=== PATIENT | male | born 1945 | race Hispanic/Latino ===

== ENCOUNTER 2016-05-17 07:27 | Day surgery (SDC) | payer MEDICARE, BC ==
[2016-04-26 13:48] VITALS: BMI 33.9
[2016-05-17] MEDS ORDERED: Midazolam 2 MG/2 ML VIAL ONE (09:27)
[2016-05-17] MEDS ORDERED: Propofol 10 mg/ml Inj (20 ML) ONE (09:27)
[2016-05-19 15:27] VITALS: BP 152/90; PULSE 68; RESP 18; TEMP 97.4; O2SAT 98
== END 2016-05-17 11:28 | disposition home or self-care (01) ==
LOC: ENDO 07:27
PROVIDERS: ATTEND Internal Medicine
DX: D12.5 Benign neoplasm of sigmoid colon (principal); D12.0 Benign neoplasm of cecum; K64.8 Other hemorrhoids; Z12.11 Encounter for screening for malignant neoplasm of colon; E66.9 Obesity, unspecified; I42.9 Cardiomyopathy, unspecified; I25.10 Atherosclerotic heart disease of native coronary artery without angina pectoris; I10 Essential (primary) hypertension; E78.5 Hyperlipidemia, unspecified; E11.9 Type 2 diabetes mellitus without complications; I77.9 Disorder of arteries and arterioles, unspecified; Z95.1 Presence of aortocoronary bypass graft; Z68.35 Body mass index [BMI] 35.0-35.9, adult; Z86.010 Personal history of colon polyps; K59.09 Other constipation
CPT/HCPCS: 45380; 45385; 82948; 88305; J2250; J2704; J7040

== ENCOUNTER 2018-05-02 07:04 | Outpatient (CLI) | payer MEDICARE | END 2018-05-02 07:05 | disposition home or self-care (01) | LOC: CARDIO 07:04 | DX: I25.10 Atherosclerotic heart disease of native coronary artery without angina pectoris (principal) ==

== ENCOUNTER 2018-05-15 06:09 | Day surgery (SDC) | payer MEDICARE ==
[2018-05-15 06:09] VITALS: BMI 33.5
--- NOTE | 2018-05-15 06:44 | ED PDOC ---
Arrival/HPI - General Chief Complaint: Chest Pain Time Seen by Provider: 05/15/18 06:32 Historian: Patient - History of Present Illness Narrative History of Present Illness (Text): 05/15/18 06:30 Patient to ED Past medical hx. of CAD,cardiac stents,atrial fibrillation on Eliquis,CABG,DM,HTN with complaint of intermittent chest discomfort since this am.No pain now.No hx. of any SOB.Patient with recent stress test which was abno rmal.Denies any back pain or leg pain.States he was advised by his roller setter to go to the emergency room. Past Medical History - Provider Review Nursing Documentation Reviewed: Yes - Travel History Have you recently traveled outside [place] w/in the past 3 mons?: No - Cardiac Hx Cardiac Disorders: Yes Hx Atrial Fibrillation: Yes Hx Hypertension: Yes - Neurological Hx Paralysis: No - Endocrine/Metabolic Hx Endocrine Disorders: Yes Hx Diabetes Mellitus Type 2: Yes - Hematological/Oncological Hx Blood Transfusions: No Hx Blood Transfusion Reaction: No - Musculoskeletal/Rheumatological Hx Musculoskeletal Disorders: No - Psychiatric Hx Emotional Abuse: No Hx Physical Abuse: No Hx Substance Use: No - Surgical History Hx Cardiac Catheterization: Yes Hx Coronary Artery Bypass Graft: Yes Other/Comment: cardiac stent x1 - Anesthesia Hx Anesthesia Reactions: No Hx Malignant Hyperthermia: No - Suicidal Assessment Feels Threatened In Home Enviroment: No Family/Social History - Physician Review Nursing Documentation Reviewed: Yes Family/Social History: CAD/[place] Smoking Status: Former Smoker Hx Alcohol Use: Yes (ON OCCASION) Frequency of alcohol use: Socially Hx Substance Use: No Allergies/Home Meds Allergies/Adverse Reactions: Allergies No Known Allergies Allergy (Verified 01/14/12 18:10) Home Medications: Home Meds Medication Instructions Recorded Confirmed Aspirin [Aspirin EC] 325 mg PO QPM 06/27/15 05/15/18 Metoprolol Tartrate [Lopressor] 50 mg PO BID 06/27/15 05/15/18 Multivit-Min/FA/Lycopen/Lutein 1 tab PO DAILY 06/27/15 05/15/18 [Centrum Silver Tablet] Olmesartan/Amlodipin/Hcthiazid 1 tab PO QAM 06/27/15 05/15/18 [Tribenzor 5 mg-12.5 mg-40 mg] [place]-3 Acid Ethyl Esters [Lovaza] 2 gm PO BID 06/27/15 05/15/18 Rosuvastatin Calcium [Crestor] 20 mg PO QPM 06/27/15 05/15/18 metFORMIN [glucOPHAGE] 1,000 mg PO BID 06/27/15 05/15/18 Empagliflozin [Jardiance] 25 mg PO DAILY 05/02/18 05/15/18 Apixaban [Eliquis] 5 mg PO BID 05/15/18 05/15/18 Review of Systems - Review of Systems Constitutional: Normal Eyes: Normal ENT: Normal Respiratory: Normal Cardiovascular: Chest Pain Gastrointestinal: Normal Genitourinary Male: Normal Musculoskeletal: Normal Skin: Normal Neurological: Normal Endocrine: Normal Hemo/Lymphatic: Normal Psychiatric: Normal Physical Exam Vital Signs Temp Pulse Resp BP Pulse Ox 05/15/18 06:20 98.7 F 86 24 165/69 H 96 Temperature: Afebrile Blood Pressure: Normal Pulse: Regular Respiratory Rate: Normal Appearance: Positive for: Well-Appearing, Non-Toxic, Comfortable Pain Distress: None Mental Status: Positive for: Alert and Oriented X 3 - Systems Exam Head: Present: Atraumatic, Normocephalic Pupils: Present: PERRL Extroacular Muscles: Present: EOMI Conjunctiva: Present: Normal Mouth: Present: Moist Mucous Membranes Neck: Present: Normal Range of Motion Respiratory/Chest: Present: Clear to Auscultation, Good Air Exchange. No: Respiratory Distress, Accessory Muscle Use Cardiovascular: Present: Regular Rate and Rhythm, Normal S1, S2. No: Murmurs Abdomen: No: Tenderness, Distention, Peritoneal Signs Back: Present: Normal Inspection Upper Extremity: Present: Normal Inspection. No: Cyanosis, Edema Lower Extremity: Present: Normal Inspection. No: Edema Neurological: Present: GCS=15, CN II-XII Intact, Speech Normal, Motor Func Grossly Intact, Normal Sensory Function Skin: Present: Warm, Dry, Normal Color. No: Rashes Psychiatric: Present: Alert, Oriented x 3, Normal Insight, Normal Concentration Medical Decision Making ED Course and Treatment: 05/15/18 06:45 Differentia DX. -ACS/PNA/PE Plan- Labs/EKG/CXR Reassess Final Disposition 05/15/18 06:56 Patient now requested for admission to [facility] to undergo cardiac catheterization - RAD Interpretation Radiology Orders: 05/15/18 06:41 CHEST PORTABLE [RAD] Stat Disposition/Present on Arrival - Present on Arrival Any Indicators Present on Arrival: No History of DVT/PE: No History of Uncontrolled Diabetes: No Urinary Catheter: No History of Decub. Ulcer: No History Surgical Site Infection Following: None - Disposition Have Diagnosis and Disposition been Completed?: Yes Diagnosis: Chest pain Disposition Time: 07:00 Patient Plan: Admission Patient Problems: Current Active Problems Problem Status Onset Chest pain Acute Condition: STABLE Discharge Instructions (ExitCare): Chest Pain (ED) Referrals: Bill Moyer MD [Primary Care Provider] - Follow up with primary Forms: [employer] (Nepali)
[2018-05-15 06:58] LABS: MEAN CELL VOLUME 92.2 fl (80.0-105.0); MEAN CORPUSCULAR HEMOGLOBIN 31.6 pg (25.0-35.0); MEAN CORPUSCULAR HGB CONC 34.3 g/dl (31.0-37.0); MEAN PLATELET VOLUME 9.9 fl (7.0-11.0); RBC 4.74 10^6/uL (3.5-6.1); RED CELL DISTRIBUTION WIDTH 12.7 % (11.5-14.5); WHITE BLOOD COUNT 9.5 10^3/uL (4.5-11.0)
[2018-05-15 07:00] LABS: ALB/GLOB RATIO 1.1 (1.1-1.8); ALBUMIN 4.5 g/dL (3.0-4.8); ALT/SGPT 21 U/L (7-56); AST/SGOT 28 U/L (17-59); BLOOD UREA NITROGEN 30 mg/dL (7-21); CALCIUM 9.7 mg/dL (8.4-10.5); GFR NON-AFRICAN AMERICAN 59
[2018-05-15 07:02] LABS: INR 1.11; PARTIAL THROMBOPLASTIN TIME 35.4 Seconds (26.9-38.3); PROTHROMBIN TIME 12.5 SECONDS (9.4-12.5)
[2018-05-15 07:12] LABS: TROPONIN I 0.04 ng/mL
[2018-05-15] MEDS ORDERED: Lidocaine PF 2% (5 ml) Inj (For Cardiac Arrhy) ONE (09:20)
[2018-05-15] MEDS ORDERED: Iodixanol 320 MG/ML 200 ML BOTTLE IV ONE (09:20)
[2018-05-15] MEDS ORDERED: Iohexol 350mgl/ml 50 ML ONE (09:20)
[2018-05-15] MEDS ORDERED: Iodixanol 320 MG/ML 100 ML BOTTLE IV ONE (09:20)
--- NOTE | 2018-05-15 09:25 | RAD ---
Date of service: 05/15/2018 HISTORY: chest pain COMPARISON: No prior. TECHNIQUE: 1 view obtained. FINDINGS: LUNGS: No active pulmonary disease. PLEURA: No significant pleural effusion identified, no pneumothorax apparent. CARDIOVASCULAR: No aortic atherosclerotic calcification present. Mild to moderate cardiomegaly no pulmonary vascular congestion. OSSEOUS STRUCTURES: Sternal wires VISUALIZED UPPER ABDOMEN: Normal. OTHER FINDINGS: None. IMPRESSION: No active disease.
[2018-05-15] MEDS ORDERED: Midazolam 2 MG/2 ML VIAL ONE ×2 (10:15→10:20)
--- NOTE | 2018-05-15 11:07 | CARD ---
APPROVED REPORT Date of service: 05/15/2018 EKG Measurement Heart [id number] <Conclusion> Atrial fibrillation with premature ventricular or aberrantly conducted complexes Nonspecific intraventricular block T wave abnormality, consider lateral ischemia or digitalis effect Abnormal ECG
[2018-05-15] MEDS ORDERED: Sodium Chloride 0.9% 1,000 ML IV SCH (11:15)
--- NOTE | 2018-05-15 13:03 | CARD ---
APPROVED REPORT Date of service: 05/15/2018 EKG Measurement Heart [id number] <Conclusion> Atrial fibrillation Incomplete left Bundle br. block T wave abnormality, possibly repolarization abnormality secondary to Bundle Br. Block but can not R/o Ischemia Corelate clinically. Abnormal ECG
--- NOTE | 2018-05-15 16:23 | CARDCATH ---
PROCEDURE DATE: 05/15/2018 PROCEDURES: 1. Left heart catheterization with coronary arteriography, left ventriculogram, supra-aortic valvular injection, left internal mammary artery angiogram and saphenous vein graft angiogram followed by percutaneous transluminal coronary angioplasty and stent of a saphenous vein graft to the diagonal vessel. HISTORY: The patient is a 72-year-old male with a history of coronary artery bypass surgery, diabetes mellitus, ischemic dilated cardiomyopathy as well as new-onset atrial fibrillation, who presented with an abnormal stress test with new area of ischemia in the anterior wall. Because of this, cardiac catheterization was recommended. The right femoral artery was cannulated with a 6-Mohawk sheath. There were no complications. I performed moderate sedation which included the presence of an independent trained observer that assisted in monitoring the patient's level of consciousness and physiologic status. After administration of Versed and fentanyl, my intra service time was 45 minutes. The findings on catheterization revealed a left ventricle that was globally hypokinetic. The estimated ejection fraction was 35-40%. Supra-aortic valvular injection revealed no aortic insufficiency. His coronary anatomy revealed an occluded RCA which was chronic. The left main artery was unremarkable. The LAD was subtotally occluded in its midportion. The circumflex artery is occluded in its proximal portion. The saphenous vein graft to the obtuse marginal branch was occluded which is chronic. The saphenous vein graft to the diagonal vessel was patent, however, there was a 90% stenoses in the proximal portion. The MARIN to the LAD was found to be patent and provided good antegrade flow to the mid and distal LAD. The patient was started on intravenous Angiomax under fluoroscopic guide, the right guiding catheter was placed in the ostium of the saphenous vein graft. A guide liner was used for better support; an ATW wire was used to cross the lesion. A 4.0 drug-eluting stent was placed and deployed in the proximal portion of the saphenous vein graft to the diagonal vessel. Postdilatation was performed with a 5.0 noncompliant balloon. Repeat coronary arteriography revealed an excellent result with no residual stenosis and JAE III flow. The patient tolerated the procedure well. Angio-Seal was used to close the femoral artery site. In summary, the procedure was successful PTCA and stent of a 90% proximal stenoses of the saphenous vein graft to the diagonal vessel. A drug-eluting stent was utilized. Postdilatation was performed with a 5.0 balloon. Cardiac catheterization reveals severe triple-vessel CAD. An occluded SVG to the circumflex artery. Patent MARIN to the LAD. New 90% stenoses in the saphenous vein graft to the diagonal vessel. Given these findings, the patient will need to remain on aspirin and Plavix with Plavix for at least a year. We will then add Eliquis to the patient's regimen given his new onset atrial fibrillation and DC the aspirin and continue the Plavix. Javan Hutchinson MD
[2018-05-15] MEDS ORDERED: Dextrose 50% SYRINGE Inj (50 ml) IV PRN (16:40)
[2018-05-15] MEDS: Insulin Reg-MEDIUM-Coverage SC SCH ×2 (17:14→22:43)
[2018-05-15 17:30] VITALS: RESP 20
--- NOTE | 2018-05-16 01:29 | HP ---
DATE OF EXAM: 05/15/2018 I was called by Dr. Javan Hutchinson, to admitted him to the hospital, he is status post coronary artery disease, catheterization and stent placement. HISTORY OF PRESENT ILLNESS: He is a 72-year-old man with past medical history of CAD, cardiac stent, AFib on Eliquis, history of CABG, diabetes, hypertension, intermittent chest pain, no shortness of breath. He had a recent stress test, which was abnormal. He was advised by Dr. Hutchinson to come to the emergency room. PAST MEDICAL HISTORY: AFib, hypertension, diabetes. He has coronary artery bypass graft with cardiac stent x1. FAMILY HISTORY: CAD and [place]. SOCIAL HISTORY: He is a former smoker. He still drinks alcohol on occasion. No substance abuse. ALLERGIES: NO KNOWN DRUG ALLERGIES. MEDICATIONS: He takes aspirin, Lopressor, Tribenzor, [place]-3 fatty acid, Crestor, Glucophage, Jardiance and Eliquis. REVIEW OF SYSTEMS: No acute vision or hearing changes. No sore throat. No neck pain. No shortness of breath or cough. No chest pain or palpitations. No abdominal pain, nausea, vomiting, constipation, or diarrhea. No problems urinating. No leg pains, back pains. No skin issues that he knows of. Alert and oriented. He just has chest pains. Positive stress test. PHYSICAL EXAMINATION VITAL SIGNS: A 98.7 temperature, 86 pulse, 24 respiratory rate, 165/69 blood pressure, 96% O2 sat. GENERAL: He is well appearing status post cardiac cath, resting comfortably in bed. He is to lay flat for 6 hours. He is comfortable at this time. He is alert and oriented x3. HEENT: Head; atraumatic and normocephalic. Extraocular muscles are intact. Pupils are equal and reactive to light and accommodation. Throat is moist. NECK: Supple. HEART: Regular rate. Normal S1 and S2. LUNGS: Decrease breath sounds, but clear to auscultation. No wheezes, rhonchi or rales. ABDOMEN: Soft, nontender. Positive bowel sounds. No guarding, no rebound. No CVA tenderness. EXTREMITIES: No edema. NEUROLOGIC: GCS is 15. Cranial nerves II to XII grossly intact. Speech is normal. SKIN: Warm and dry as far as I could tell. Lying flat on the bed. Alert and oriented x3. LYMPHATICS: Thyroid midline. No palpable appreciable lymphadenopathy. LABORATORY DATA: He had multiple tests done. He has a 141 sodium, potassium 4.2, BUN 30, creatinine 1.2, GFR is 59, last sugar is 173, calcium is 9.7, total bili is 0.6, AST is 28, ALT is 21, alk phos is 62, lactate dehydrogenase 404. Total creatine kinase is 94. Troponin I is 0.04. Total protein is 8.4. His INR is 1.11. He has a 9.5 white count, 15 hemoglobin, 42.7 hematocrit with a 102 platelets. A chest x-ray that was clear. EKG showed AFib. He had a positive stress test. ASSESSMENT: He has cardiac catheterization with stent placement for his coronary artery disease. PLAN: We will watch him overnight and will hopefully discharge him tomorrow morning. We will hold his medications for diabetes and that could bother the kidneys. He has dextrose just in case the blood sugar goes low. He is on Ecotrin, insulin coverage a.c. at bedtime, Lipitor, Lopressor and Plavix. Ibrahima Almendarez DO MTDD
[2018-05-16 06:02] VITALS: TEMP 97.8; O2SAT 95
[2018-05-16 06:42] LABS: BASO # 0.02 K/mm3 (0.0-2.0); BASO % 0.2 % (0.0-3.0); EOS # 0.1 (0.0-0.7); EOS % 1.1 % (1.5-5.0); HEMOGLOBIN 13.5 g/dL (14.0-18.0); LYMPH # 1.4 (1.2-3.4); LYMPH % 15.6 % (22.0-35.0); MEAN CELL VOLUME 93.4 fl (80.0-105.0); MEAN CORPUSCULAR HEMOGLOBIN 30.9 pg (25.0-35.0); MEAN CORPUSCULAR HGB CONC 33.1 g/dl (31.0-37.0); MONO # 0.9 (0.1-0.6); MONO % 10.1 % (1.0-6.0); RBC 4.37 10^6/uL (3.5-6.1); RED CELL DISTRIBUTION WIDTH 12.8 % (11.5-14.5); WHITE BLOOD COUNT 9.2 10^3/uL (4.5-11.0)
[2018-05-16 07:17] LABS: BLOOD UREA NITROGEN 19 mg/dL (7-21); CALCIUM 9.2 mg/dL (8.4-10.5); GFR NON-AFRICAN AMERICAN > 60
[2018-05-16] MEDS: Insulin Reg-MEDIUM-Coverage SC SCH (08:09)
[2018-05-16 10:10] VITALS: BP 153/78; PULSE 77
--- NOTE | 2018-05-16 11:59 | PN ---
DATE: 05/16/2018 SUBJECTIVE: The patient is chest pain-free. OBJECTIVE: VITAL SIGNS: Stable. NECK: Negative JVD. LUNGS: Without rales. HEART: S1 and S2. EXTREMITIES: Without edema. Right groin site is stable. LABORATORY DATA: Unremarkable. EKG is unremarkable. IMPRESSION: 1. Stable post percutaneous transluminal coronary angioplasty and stent of the saphenous vein graft to the diagonal vessel. 2. Multivessel coronary artery disease. 3. History of coronary artery bypass surgery. 4. Atrial fibrillation. 5. Hypertension. PLAN: Given these findings, the patient is stable for discharge. He will go home on a combination of Plavix as well as Eliquis without aspirin. The risk of three medications of aspirin, Plavix and Eliquis would be too high of a bleeding risk. I have discussed this with the patient in detail. Follow up and instructions have been given to the patient in detail. Javan Hutchinson MD
--- NOTE | 2018-05-16 12:26 | CARD ---
APPROVED REPORT Date of service: 05/16/2018 EKG Measurement Heart [id number] <Conclusion> Atrial fibrillation Nonspecific intraventricular block T wave abnormality, consider inferolateral ischemia or digitalis effect Abnormal ECG
--- NOTE | 2018-05-17 01:18 | DS ---
HISTORY OF PRESENT ILLNESS: He will be discharged today, status post cardiac cath with Dr. Hutchinson yesterday. He is feeling great this morning. No chest pain. No shortness of breath. No abdominal pain. He is eating well and going to the bathroom well. He is in good spirits. He is going to follow up with Dr. Moyer, his primary care doctor this week and also Dr. Hutchinson. MEDICATIONS: As per Dr. Hutchinson, he will adjust them this morning. PHYSICAL EXAMINATION: VITAL SIGNS: He has a 97.8 temperature, 69 pulse, 158/78 blood pressure, 20 respiratory rate, and 95% O2 sat nasal cannula. HEENT: Head; atraumatic and normocephalic. HEART: Regular rate. LUNGS: Decreased breath sounds, but clear. ABDOMEN: Soft and obese. EXTREMITIES: No edema. LABORATORY DATA: He has a 9.2 white count, 13.5 hemoglobin, 40.8 hematocrit, and 162 platelets. He has 139 sodium, potassium 4.3, BUN is 90, creatinine 1.1, GFR is greater than 60, sugar is 120, and calcium is 9.2. ASSESSMENT AND PLAN: Overall, he did very well with the cardiac catheterization and stent placement. He will follow up with Dr. Hutchinson. He will be on Plavix and probably Eliquis, aspirin, his regular medications and follow with Dr. Moyer. He had coronary artery disease and stent placement. Ibrahima Almendarez DO
== END 2018-05-16 13:19 | disposition home or self-care (01) ==
LOC: ED 06:09 → CATH 07:32 → 2RSO 11:26 → CATH 05-16 13:19
PROVIDERS: ATTEND Internal Medicine Cardiovascular Disease
DX: R07.89 Other chest pain (principal); I25.10 Atherosclerotic heart disease of native coronary artery without angina pectoris; I10 Essential (primary) hypertension; E11.9 Type 2 diabetes mellitus without complications; I25.5 Ischemic cardiomyopathy; I42.0 Dilated cardiomyopathy; I48.91 Unspecified atrial fibrillation; T82.858A Stenosis of other vascular prosthetic devices, implants and grafts, initial encounter; Z79.01 Long term (current) use of anticoagulants; Z79.4 Long term (current) use of insulin; Z79.82 Long term (current) use of aspirin; Z79.899 Other long term (current) drug therapy; Z82.49 Family history of ischemic heart disease and other diseases of the circulatory system; Z87.891 Personal history of nicotine dependence; Z95.5 Presence of coronary angioplasty implant and graft
CPT/HCPCS: 71045; 80053; 82550; 82948; 83615; 84484; 85027; 85610; 85730; 93005; 93459; 99152; 99153; C1725; C1760; C1769 ×2; C1874; C1887 ×2; C2629; C9604; J0583; J1644; J2250; J2405; J3010; J7030; J7040; Q9966; Q9967 ×2